=== PATIENT | female | born 1970 | race Caucasian/White ===

== ENCOUNTER 2016-07-03 12:48 | Emergency (ER) | payer OTHER ==
[2016-07-03 13:39] VITALS: RESP 18; TEMP 98; O2SAT 100
[2016-07-03] MEDS ORDERED: Naproxen 550 mg Tab PO STA (14:17)
[2016-07-03] MEDS ORDERED: Naproxen 550 mg Tab PO ONE (14:22)
--- NOTE | 2016-07-03 15:02 | C.PDOC ---
History Of Present Illness Pt c/o pain and swelling in anterior right knee. Denies injury. Time Seen by Provider: 07/03/16 14:02 Chief Complaint (Nursing): Lower Extremity Problem/Injury History Per: Patient Onset/Duration Of Symptoms: Days (about 5), Waxing/Waning, Gradual Current Symptoms Are (Timing): Still Present Severity: Moderate Additional History Per: Prior Records Past Medical History Reviewed: Historical Data, Nursing Documentation, Vital Signs Vital Signs: Last Vital Signs Temp 98 F 07/03/16 13:35 Pulse 86 07/03/16 13:35 Resp 18 07/03/16 13:35 BP 119/79 07/03/16 13:35 Pulse Ox 100 07/03/16 13:35 - Medical History PMH: Migraine Family History: States: Unknown Family Hx - Social History Hx Tobacco Use: No Hx Alcohol Use: No Hx Substance Use: No - Immunization History Hx Tetanus Toxoid Vaccination: No Hx Influenza Vaccination: No Hx Pneumococcal Vaccination: No Review Of Systems Except As Marked, All Systems Reviewed And Found Negative. Constitutional: Negative for: Fever, Weakness Cardiovascular: Negative for: Chest Pain Respiratory: Negative for: Shortness of Breath Gastrointestinal: Negative for: Vomiting, Abdominal Pain Musculoskeletal: Positive for: Other (Right knee pain). Negative for: Neck Pain , Back Pain, Leg Pain, Foot Pain Skin: Negative for: Rash Neurological: Negative for: Weakness, Numbness, Seizures, Altered Mental Status Physical Exam - Physical Exam Appears: Non-toxic, No Acute Distress Skin: Normal Color, Warm, Dry, No Rash Head: Atraumatic, Normacephalic Eye(s): bilateral: PERRL, EOMI Neck: Normal ROM, Supple Cardiovascular: Rhythm Regular Respiratory: Normal Breath Sounds, No Accessory Muscle Use Gastrointestinal/Abdominal: Soft, No Tenderness Back: No CVA Tenderness Extremity: Normal ROM, Tenderness (nonspecific anterior right knee), No Calf Tenderness, No Deformity, Swelling (mild right knee) Extremity: Bilateral: Normal Color And Temperature Pulses: Right Dorsalis Pedis: Normal Neurological/Psych: Oriented x3, Normal Motor, Normal Sensation ED Course And Treatment O2 Sat by Pulse Oximetry: 100 Pulse Ox Interpretation: Normal - Other Rad Right knee x-rays X-Ray: Interpreted by Me, Viewed By Me Interpretation: No acute fx or dislocation. Reassessment Condition: Improved Disposition Counseled Patient/Family Regarding: Studies Performed, Diagnosis, Need For Followup, Rx Given - Disposition Referrals: [facility] at [facility] [Outside] Disposition: HOME/ ROUTINE Disposition Time: 15:03 Condition: IMPROVED Additional Instructions: Follow up in the clinic for further evaluation and treatment. Return to the ER if you develop redness, fever, worsening of symptoms or if you have any other concerns. Prescriptions: Naproxen [Naprosyn] 1 tab PO BID PRN #20 tab PRN Reason: Pain Instructions: Knee Pain (ED) Print Language: EQUATORIAL GUINEAN - Clinical Impression Clinical Impression: Right knee pain
[2016-07-03 15:40] VITALS: BP 122/72; PULSE 72
--- NOTE | 2016-07-03 15:41 | RAD ---
PROCEDURE: Right Knee Radiographs. HISTORY: Pain and swelling COMPARISON: None. FINDINGS: BONES: Normal. No acute fracture. Bone alignment and mineralization are normal. JOINTS: There is mild degenerative osteoarthrosis in the medial compartment with reduced joint space and marginal spurring. There is also degenerative spurring in the patella. JOINT EFFUSION: There is a small suprapatellar joint effusion. OTHER FINDINGS: None. IMPRESSION: Mild tricompartmental degenerative osteoarthrosis, worse in the medial compartment. Small suprapatellar joint effusion.
== END 2016-07-03 15:15 | disposition home or self-care (01) ==
LOC: C.ER 12:48
DX: M25.561 Pain in right knee (principal)

== ENCOUNTER 2018-04-26 16:55 | Emergency (ER) | payer OTHER ==
[2018-04-26 17:03] VITALS: BMI 25.0
[2018-04-26 17:04] VITALS: BP 132/89; PULSE 82; RESP 18; TEMP 98; O2SAT 100
--- NOTE | 2018-04-26 17:48 | C.PDOC ---
History Of Present Illness 47-year-old female, with remote history of left knee surgery after accident many years ago, presents to the ED for evaluation of bilateral knee pain which began around four days ago. Patient reports the pain wraps around her knees, at the posterior fossa. She reports increased pain with walking and \ flexion of her legs. She states that her legs feel stiff and full, and reports a burning sensation going down the front of each fernando. She denies fever, chills, or history of recent trauma. Time Seen by Provider: 04/26/18 16:58 Chief Complaint (Nursing): Lower Extremity Problem/Injury History Per: Patient History/Exam Limitations: no limitations Onset/Duration Of Symptoms: Days (4) Current Symptoms Are (Timing): Still Present Additional History Per: Patient Past Medical History Reviewed: Historical Data, Nursing Documentation, Vital Signs Vital Signs: Last Vital Signs Temp 98.0 F 04/26/18 17:03 Pulse 82 04/26/18 17:03 Resp 18 04/26/18 17:03 BP 132/89 04/26/18 17:03 Pulse Ox 100 04/26/18 17:03 - Medical History PMH: Migraine Surgical History: No Surg Hx Family History: States: Unknown Family Hx - Social History Hx Tobacco Use: No Hx Alcohol Use: No Hx Substance Use: No - Immunization History Hx Tetanus Toxoid Vaccination: No Hx Influenza Vaccination: No Hx Pneumococcal Vaccination: No Review Of Systems Constitutional: Negative for: Fever, Chills Musculoskeletal: Positive for: Other (bilateral knee pain) Physical Exam - Physical Exam Appears: Non-toxic, No Acute Distress Skin: Normal Color, Warm, Dry Extremity: Normal ROM, No Calf Tenderness, Capillary Refill (less than 2 seconds ), Swelling (mild, to right knee ), Other (+1 pitting edema to bilateral lower extremities, varicose veins bilaterally. no warmth, erythema or lesions noted ) Pulses: Left Dorsalis Pedis: Normal, Right Dorsalis Pedis: Normal Neurological/Psych: Oriented x3, Normal Speech, Normal Cognition, Normal Motor, Normal Sensation Gait: Steady ED Course And Treatment O2 Sat by Pulse Oximetry: 100 Medical Decision Making Medical Decision Making: Plan: * bilateral knee XR * Tramadol PO * reassess and disposition Progress: bilateral knee XR ordered and reviewed. Tramadol PO given. Disposition Counseled Patient/Family Regarding: Studies Performed, Diagnosis, Need For Followup, Rx Given - Disposition Referrals: [facility] [Outside] Dulce Ge MD [Staff Provider] - Disposition: HOME/ ROUTINE Disposition Time: 18:10 Condition: STABLE Additional Instructions: [place] la Naproxen con el Tramadol juntos, por la noche. Prescriptions: Naproxen [Naprosyn] 1 tab PO BID PRN #25 tab PRN Reason: Pain traMADol/Acetaminophen [Ultracet 37.5/325 mg] 1 tab PO TID PRN #20 tab PRN Reason: pain Instructions: Osteoarthritis Forms: Gen Discharge Inst Israeli, [place] [facility] ([place]i) - POA Present On Arrival: None - Clinical Impression Clinical Impression: Joint swelling, Joint pain, Arthritis
--- NOTE | 2018-04-26 18:04 | RAD ---
Date of service: 04/26/2018 PROCEDURE: Bilateral Knee Radiographs. HISTORY: pain COMPARISON: None. FINDINGS: BONES: Right Knee: Normal. No fracture. Left Knee: No fracture. There is a compression screw through proximal tibial diaphysis at the level of the tibial tuberosity. JOINTS: Right Knee: Patellofemoral osteoarthritis. No articular erosion. Medial and lateral compartments are preserved. Left knee: Patellofemoral osteoarthritis. No articular erosion. Medial and lateral compartments are preserved. SOFT TISSUES: Right Knee: Normal. Left Knee: Normal. JOINT EFFUSION: Right Knee: None. Left Knee: None. OTHER FINDINGS: None. IMPRESSION: Bilateral patellofemoral osteoarthritis.
== END 2018-04-26 18:21 | disposition home or self-care (01) ==
LOC: C.ER 16:55
DX: M25.561 Pain in right knee (principal); M25.562 Pain in left knee; M17.0 Bilateral primary osteoarthritis of knee; M25.462 Effusion, left knee; M25.461 Effusion, right knee